=== PATIENT | male | born 1985 | race Caucasian/White ===

== ENCOUNTER 2024-06-11 10:12 | Day surgery (SDC) | payer BC ==
[~2024-06-11 10:12] MED LIST: Sodium Chloride 0.9% 10 ML Syringe FLUSH PRN; Sodium Chloride 0.9% 10 ML Syringe FLUSH SCH
[2024-06-11] MEDS: Lactated Ringers 1,000 ML IV SCH (10:15)
[2024-06-11] MEDS ORDERED: Propofol 200 MG/20 ML SDV ONE ×2 (10:17→11:13)
[2024-06-11] MEDS ORDERED: Lidocaine 1% 4 ML ONE (10:20)
[2024-06-11] MEDS ORDERED: Midazolam 1 MG/ML 2 ML SDV ONE (11:10)
== END 2024-06-11 12:02 | disposition home or self-care (01) ==
LOC: JD.SDS 10:12
PROVIDERS: ATTEND Surgery
DX: K29.50 Unspecified chronic gastritis without bleeding (principal); K25.9 Gastric ulcer, unspecified as acute or chronic, without hemorrhage or perforation; K31.A0 Gastric intestinal metaplasia, unspecified; K21.9 Gastro-esophageal reflux disease without esophagitis; F17.210 Nicotine dependence, cigarettes, uncomplicated; Z79.899 Other long term (current) drug therapy; Z91.030 Bee allergy status
CPT/HCPCS: 43239; J2250; J2704; J7120; 00731; J3490